=== PATIENT | female | born 1945 | race Caucasian/White ===

== ENCOUNTER 2021-10-05 13:29 | Outpatient (CLI) | payer MEDICARE, MEDICAID ==
[2021-10-06 01:01] LABS: SARS-CoV-2 PCR by NAA Not Detected (NotDetected)
== END 2021-10-05 13:30 | disposition home or self-care (01) ==
LOC: CSHLAB 13:29
PROVIDERS: ATTEND Internal Medicine Critical Care Medicine
DX: Z20.822 Contact with and (suspected) exposure to COVID-19 (principal)
CPT/HCPCS: U0003; U0005

== ENCOUNTER 2021-10-10 10:34 | Outpatient (CLI) | payer MEDICARE, MEDICAID | END 2021-10-10 10:35 | disposition home or self-care (01) | LOC: CSHCP 10:34 | PROVIDERS: ATTEND Internal Medicine Critical Care Medicine | DX: J44.9 Chronic obstructive pulmonary disease, unspecified (principal) | CPT/HCPCS: 94060; 94726; 94729; 94760 ==